=== PATIENT | male | born 1980 | race Hispanic/Latino ===

== ENCOUNTER 2018-03-13 16:54 | Emergency (ER) | payer SELFPAY ==
[2018-03-13] MEDS ORDERED: NA CHLORIDE 0.9% 1,000 ML ONE (17:43)
[2018-03-13 17:56] LABS: Hematocrit 22.4 % (39.6-49.0); MCH 29.7 pg (27.0-35.0); MPV 9.4 fL (7.6-11.3); RBC Red Blood Cell Count 2.38 M/uL (4.33-5.43)
[2018-03-13 18:03] LABS: Protime INR 1.35
[2018-03-13 18:10] LABS: ALT/SGPT 21 U/L (12-78); AST/SGOT 20 U/L (15-37); Albumin 3.6 g/dL (3.4-5.0); Alkaline Phosphatase 72 U/L (45-117); Amylase Level 31 U/L (25-115); BUN Blood Urea Nitrogen 9 mg/dL (7-18); Bicarbonate 26 mmol/L (21-32); Bilirubin Direct < 0.1 mg/dL (0-0.2); Bilirubin Total 0.4 mg/dL (0.2-1.0); Glucose Level 117 mg/dL (74-106); Lipase 59 U/L (73-393); Magnesium 2.4 mg/dL (1.8-2.4); Potassium 3.8 mmol/L (3.5-5.1); Sodium Level 143 mmol/L (136-145)
[2018-03-13 18:32] LABS: Platelet Estimate ADEQ
[2018-03-13 18:33] LABS: Blood Morphology Comment NOT SEEN (NOT SEEN)
[2018-03-13 18:48] LABS: Urine Bacteria <20 /HPF (NONE SEEN); Urine RBC <5 /HPF (NONE SEEN)
[2018-03-13 18:49] LABS: Urine Amorphous Sediment 1+ /HPF (NONE SEEN); Urine Culture Reflex Order NOT NEEDED; Urine Mucus 1+ /HPF (NONE SEEN)
[2018-03-13] MEDS ORDERED: PIPER/TAZO/NS 3.375gm 3.375 GM/100 ML BAG ONE (18:57)
[2018-03-13] MEDS ORDERED: METRONIDAZOLE 500mg IVPB 500 MG/100 ML BAG IV ONE (18:57)
[2018-03-13 19:04] LABS: Urine Blood TRACE (NEG); Urine Glucose NEGATIVE (NEG); Urine Protein 1+ (NEG)
--- NOTE | 2018-03-13 19:09 | EKG ---
Test Date: 2018-03-13 Test Time: 17:45:15 [employer] Dispatcher: DAGO MEASUREMENT RESULTS: Intervals: Rate: 104 DE: 130 QRSD: 94 QT: 342 QTc: 449 [place]: P: 27 DE: 130 QRS: 18 T: 35 INTERPRETIVE STATEMENTS: Sinus tachycardia Otherwise normal ECG No previous ECG available for comparison Electronically Signed On 03-13-18 19:08:37 CDT by Tima Garnett
[2018-03-13] MEDS ORDERED: FENTANYL CITR 100 MCG/2 ML ONE (19:17)
--- NOTE | 2018-03-13 19:51 | RAD REPORT ---
EXAM DESCRIPTION: CT - Abdomen Pelvis W Contrast - 03/13/2018 7:25 pm CLINICAL HISTORY: Abdominal pain, bloody diarrhea COMPARISON: None. TECHNIQUE: Biphasic, helical CT imaging of the abdomen and pelvis was performed following 100 ml non -ionic IV contrast. Oral contrast was given. All CT scans are performed using dose optimization technique as appropriate and may include automated exposure control or mA/KV adjustment according to patient size. FINDINGS: No suspicious findings in the lung bases. Liver is normal in size. In the anterior right lobe segment IV near the falciform ligament there is a 3.3 centimeter rounded area of diminished attenuation. Punctate hyperdensity is present centrally wi thin this mass. This could be mineralization or enhancement. Imaging characteristics are not signific antly different between arterial and venous phase imaging. A few small cysts are present in the right lobe of the liver a 8 mm or less in size. No gallbladder or biliary tree abnormality. No pancreatic abnormality. Patient has pronounced splenomegaly. No infarction or focal splenic abnormality seen. Spleen measures 28 cm x 23 cm x 10 cm. No adjacent lymphadenopathy. There is mass effect on the kidney and left-side d abdominal structures. Symmetric renal function is seen with no hydronephrosis or suspicious renal mass. No bladder abnormal ity. No gastric wall thickening or gastric mass. No small bowel abnormality. Appendix is surgically absent by history. Cecum through descending colon show no significant findings. In the proximal sigmoid col on there is circumferential wall thickening and luminal narrowing. A 3 centimeter x 1.5 centimeter ir regular soft tissue mass is present in the mesenteries adjacent to the involved colon. There is a pun ctate calcification present. No abscess or extraluminal free air. No abnormal free fluid collection a nd no pneumatosis. No mass or bulky lymphadenopathy. Small fat filled right inguinal hernia noted. No adrenal abnormalit y. No suspicious bony findings. IMPRESSION: Approximately 4 centimeter long segment of sigmoid colon showing wall thickening and lum inal narrowing. Approximately 3 x 1.5 cm irregular soft tissue mass in the mesenteric fat adjacent to the involved si gmoid colon. Colon findings may reflect an infectious/inflammatory colitis. Although the patient is relatively you ng, colon malignancy cannot be excluded. The mesenteric soft tissue mass near the sigmoid could represent inflammatory change as well. The pos sibility of a malignant extension or even carcinoid tumor should be considered. Marked splenomegaly with the spleen measuring 28 x 23 x 10 cm. No adjacent lymphadenopathy, splenic i nfarction or ascites. Approximately 3 centimeter nonspecific lesion segment IV of the liver. Etiology is uncertain. The mas s does not have characteristics classic for hemangioma, adenoma or focal nodular hyperplasia. A metas tatic lesion cannot be excluded if the sigmoid and mesenteric masses proved to be neoplastic.
[2018-03-13] MEDS ORDERED: NA CHLORIDE 0.9% 500 ML ONE (20:07)
--- NOTE | 2018-03-13 20:07 | ER ---
Nurse's Notes [facility] Name: Claude Crook Age: 38 yrs Sex: Male : 1980 Arrival Date: 03/13/2018 Time: 16:58 Bed 17 Private MD: None, None Diagnosis: Anemia;Gastrointestinal hemorrhage, unspecified Presentation: 03/13 17:05 Presenting complaint: Patient states: "i have had bloody stools since the day before tw2 yesterday with groin pain and i have a bruise on my left lower abdomen after rides [place] amusement park". Transition of care: patient was not received from another setting of care. Onset of symptoms was March 13, 2018. Risk Assessment: Do you want to hurt yourself or someone else? Patient reports no desire to harm self or others. Initial Sepsis Screen: Does the patient meet any 2 criteria? No. Patient's initial sepsis screen is negative. Does the patient have a suspected source of infection? No. Patient's initial sepsis screen is negative. Care prior to arrival: None. 17:05 Method Of Arrival: Ambulatory tw2 17:05 Acuity: LINDA 3 tw2 Historical: - Allergies: 17:08 No Known Allergies; tw2 - Home Meds: 17:08 None [Active]; tw2 - PMHx: 17:08 None; tw2 - PSHx: 17:08 Appendectomy; tw2 - Immunization history:: Adult Immunizations up to date. - Social history:: Smoking status: Patient/guardian denies using tobacco. - Ebola Screening: : Patient denies travel to an Ebola-affected area in the 21 days before illness onset. Screenin:16 Abuse screen: Denies threats or abuse. Nutritional screening: No deficits noted. tw2 Tuberculosis screening: No symptoms or risk factors identified. Fall Risk None identified. Assessment: 17:00 General: Appears uncomfortable, Behavior is calm, cooperative, appropriate for age. tw2 Pain: Complains of pain in right lower quadrant and left lower quadrant. Neuro: Level of Consciousness is awake, alert, obeys commands, Oriented to person, place, time, situation. Cardiovascular: Denies chest pain, shortness of breath, Heart tones S1 S2 Patient's skin is warm and dry. Respiratory: Airway is patent Respiratory effort is even, unlabored, Respiratory pattern is regular, symmetrical, Breath sounds are clear bilaterally. GI: Abdomen is round non-distended, Bowel sounds present X 4 quads. Reports lower abdominal pain, diarrhea, bloody stool. : No signs and/or symptoms were reported regarding the genitourinary system. EENT: No signs and/or symptoms were reported regarding the EENT system. Derm: Skin is intact, is healthy with good turgor, Skin temperature is warm. Musculoskeletal: Circulation, motion, and sensation intact. Range of motion: intact in all extremities. 17:28 Reassessment: provider at bedside at this time. tw2 17:53 Reassessment: Patient appears in no apparent distress at this time. No changes from tw2 previously documented assessment. Patient and/or family updated on plan of care and expected duration. Pain level reassessed. Patient is alert, oriented x 3, equal unlabored respirations, skin warm/dry/pink. 18:47 Reassessment: No changes from previously documented assessment. Patient and/or family tw2 updated on plan of care and expected duration. Pain level reassessed. Patient is alert, oriented x 3, equal unlabored respirations, skin warm/dry/pink. Reassessment: per Stephy Ramirez, wants stool sample PRIOR to abx. 18:50 Reassessment: per SELIN De Los Santos at this time, go ahead and give ABX that are ordered. tw2 19:09 General: Appears uncomfortable, Behavior is calm, cooperative, appropriate for age. ea Pain: Complains of pain in left upper quadrant and left lower quadrant and right lower quadrant Quality of pain is described as crampy. Neuro: Level of Consciousness is awake, alert, obeys commands, Oriented to person, place, time, situation. Cardiovascular: Heart tones S1 S2 present Patient's skin is warm and dry. Respiratory: Airway is patent Respiratory effort is even, unlabored, Respiratory pattern is regular, symmetrical. GI: Abdomen is non-distended, Bowel sounds present X 4 quads. Reports lower abdominal pain, diarrhea, bloody stool. : No signs and/or symptoms were reported regarding the genitourinary system. EENT: No signs and/or symptoms were reported regarding the EENT system. Derm: Skin is dry, Skin is pale, Skin temperature is warm. Musculoskeletal: Circulation, motion, and sensation intact. 19:18 Reassessment: pt taken to CT. ea 19:35 Reassessment: Patient and/or family updated on plan of care and expected duration. Pain ea level reassessed. Patient is alert, oriented x 3, equal unlabored respirations, skin warm/dry/pink. Patient returned from CT. 20:30 Reassessment: Patient and/or family updated on plan of care and expected duration. Pain ea level reassessed. Patient is alert, oriented x 3, equal unlabored respirations, skin warm/dry/pink. 21:10 Reassessment: Report called to Jhoana OSEGUERA at [facility]. ea 21:27 Reassessment: Patient and/or family updated on plan of care and expected duration. Pain ea level reassessed. Patient is alert, oriented x 3, equal unlabored respirations, skin warm/dry/pink. [facility] at facility for transfer. Vital Signs: 17:06 BP 115 / 69; Pulse 106; Resp 18; Temp 99.4(O); Pulse Ox 95% on R/A; Weight 136.08 kg tw2 (R); Height 6 ft. 2 in. (187.96 cm); Pain 7/10; 17:36 BP 113 / 67 Supine; Pulse 98; tw2 17:36 BP 114 / 66 Sitting; Pulse 97; tw2 17:36 BP 104 / 63 Standing; Pulse 107; tw2 18:48 BP 115 / 73; Pulse 98; Resp 17; Pulse Ox 96% on R/A; tw2 19:00 BP 112 / 71; Pulse 90; Resp 18; Pulse Ox 97% ; ea 20:50 BP 118 / 70; Pulse 90; Resp 18; Temp 98.8; Pulse Ox 97% ; ea 21:15 BP 117 / 68; Pulse 88; Resp 18; Temp 98.9(O); Pulse Ox 97% on R/A; ea 17:06 Body Mass Index 38.52 (136.08 kg, 187.96 cm) tw2 17:36 c/o dizziness,provider notified. tw2 17:36 dizzy tw2 ED Course: 16:58 Patient arrived in ED. mr 16:59 None, None is Private Physician. mr 17:04 Robert Ramirez PA is PHCP. cp 17:04 Mike Jenkins MD is Attending Physician. cp 17:05 Yolande Swanson RN is Primary Nurse. tw2 17:05 Placed in gown. Bed in low position. Adult w/ patient. Pulse ox on. NIBP on. tw2 17:06 Triage completed. tw2 17:06 Arm band placed on. tw2 17:45 Inserted saline lock: 20 gauge in right antecubital area, using aseptic technique. tw2 Blood collected. 17:50 EKG done, by manufacturing engineering technologist. reviewed by Robert SMALLWOOD. sm3 18:41 Bb Add On Sent. iw 19:00 Awaiting: T\\T\\S results, and PRBC's transfusion, see order in pts chart, consent has been tw2 done, OUMAR Farah notified. 19:00 Report given to OUMAR Farah. tw2 19:25 CT Abd/Pelvis - W/Contrast In Process Unspecified. EDMS 21:29 No provider procedures requiring assistance completed. Patient transferred, IV remains ea in place. Administered Medications: 17:49 Drug: NS 0.9% 1000 ml Route: IV; Rate: 1 bolus; Site: right antecubital; tw2 18:41 Follow up: Response: No adverse reaction; IV Status: Completed infusion; IV Intake: iw 1000ml 18:19 CANCELLED (Physician Discretion): NS 0.9% (30 ml/kg) 30 ml/kg IV at bolus once; Sepsis cp Protocol 18:58 Drug: Zosyn 3.375 grams Route: IVPB; Infused Over: 60 mins; Site: right antecubital; tw2 19:00 Drug: metroNIDAZOLE 500 mg Volume: 100 ml; Route: IVPB; Infused Over: 30 mins; Site: tw2 right antecubital; 19:18 Drug: fentaNYL (PF) 50 mcg Route: IVP; Site: right forearm; ea 20:30 Follow up: Response: No adverse reaction; Pain is decreased ea Intake: 18:41 IV: 1000ml; Total: 1000ml. iw Outcome: 20:06 ER care complete, transfer ordered by . cp 21:30 Transferred by ground EMS to [facility], Transfer form completed. ea 21:30 Condition: stable 21:30 Instructed on the need for transfer. 21:36 Patient left the ED. ea Signatures: Dispatcher [employer] EDND Margarita Gamez Irene, RN RN iw Robert Ramirez PA PA cp Wise, Tara RN RN tw2 Sofi Issa RN RN ea Massey, Clari 3
--- NOTE | 2018-03-13 21:37 | EDPHYS ---
Physician Documentation [facility] Name: Claude Crook Age: 38 yrs Sex: Male : 1980 Arrival Date: 03/13/2018 Time: 16:58 Bed 17 Private MD: None, None ED Physician Mike Jenkins HPI: 03/13 17:35 This 38 yrs old Male presents to ER via Ambulatory with complaints of Bloody cp Stools. 17:35 The patient presents to the emergency department with rectal bleeding, "filled toilet", cp dark red blood with bowel movement in toilet bowl, with multiple such episodes. 17:35 Onset: The symptoms/episode began/occurred 2 day(s) ago. Abdominal pain: described as cp constant. Associated signs and symptoms: Pertinent positives: anorexia, diarrhea, dizziness at rest, dizziness when standing, Pertinent negatives: chest pain, constipation, fever, shortness of breath, syncope, vomiting. Severity of symptoms: in the emergency department the symptoms are unchanged despite home interventions. The patient has not experienced similar symptoms in the past. 17:35 Patient reports symptoms started 2 days ago after eating spaghetti with room mate who cp also had diarrhea w/o blood. Historical: - Allergies: 17:08 No Known Allergies; tw2 - Home Meds: 17:08 None [Active]; tw2 - PMHx: 17:08 None; tw2 - PSHx: 17:08 Appendectomy; tw2 - Immunization history:: Adult Immunizations up to date. - Social history:: Smoking status: Patient/guardian denies using tobacco. - Ebola Screening: : Patient denies travel to an Ebola-affected area in the 21 days before illness onset. ROS: 17:50 Constitutional: Positive for chills, Negative for body aches, fever, poor PO intake. cp 17:50 Eyes: Negative for injury, pain, redness, and discharge. cp 17:50 ENT: Negative for drainage from ear(s), ear pain, sore throat, difficulty swallowing, difficulty handling secretions. 17:50 Neck: Negative for pain with movement, pain at rest, stiffness. 17:50 Cardiovascular: Negative for chest pain, edema, palpitations. 17:50 Abdomen/GI: Positive for abdominal pain, nausea, diarrhea, anorexia, rectal bleeding, of the suprapubic area, left upper quadrant and left lower quadrant, Negative for vomiting, constipation. 17:50 Back: Negative for pain at rest, pain with movement. 17:50 : Negative for urinary symptoms. 17:50 Skin: Negative for cellulitis, rash. 17:50 Neuro: Positive for dizziness, Negative for altered mental status, syncope, near syncope. 17:50 All other systems are negative. Exam: 17:52 ECG was reviewed by the Attending Physician. cp 18:00 Constitutional: The patient appears in no acute distress, alert, awake, cp non-diaphoretic, non-toxic, well developed, well nourished, obese, uncomfortable. 18:00 Head/Face: Normocephalic, atraumatic. Eyes: Pupils equal round and reactive to light, cp extra-ocular motions intact. Lids and lashes normal. Conjunctiva and sclera are non-icteric and not injected. Cornea within normal limits. Periorbital areas with no swelling, redness, or edema. ENT: Nares patent. No nasal discharge, no septal abnormalities noted. Tympanic membranes are normal and external auditory canals are clear. Oropharynx with no redness, swelling, or masses, exudates, or evidence of obstruction, uvula midline. Mucous membranes moist. Neck: Trachea midline, no thyromegaly or masses palpated, and no cervical lymphadenopathy. Supple, full range of motion without nuchal rigidity, or vertebral point tenderness. No Meningismus. Chest/axilla: Normal chest wall appearance and motion. Nontender with no deformity. No lesions are appreciated. 18:00 Cardiovascular: Rate: normal, Rhythm: regular, Heart sounds: murmur, not appreciated, rub, not appreciated, gallop, not appreciated, Edema: is not appreciated. 18:00 Respiratory: the patient does not display signs of respiratory distress, Respirations: normal, no use of accessory muscles, no retractions, no splinting, no tachypnea, labored breathing, is not present, Breath sounds: are clear throughout, no decreased breath sounds, no stridor, no wheezing. 18:00 Abdomen/GI: Inspection: bruising, anterior aspect of left lateral abdomen, obese Bowel sounds: active, all quadrants, Palpation: soft, in all quadrants, moderate abdominal tenderness, in the suprapubic area, left upper quadrant and left lower quadrant, rebound tenderness, is not appreciated, voluntary guarding, is elicited in the suprapubic area, left upper quadrant and left lower quadrant, Rectal exam: rectal tone normal, Stool: guaiac positive, maroon, tenderness, that is moderate. 18:00 Skin: cellulitis, is not appreciated, no rash present. 18:00 Neuro: Orientation: to person, place \\T\\ time. Mentation: lucid, able to follow commands, Cerebellar function: is grossly normal, Motor: moves all fours, strength is normal, Sensation: no obvious gross deficits. Vital Signs: 17:06 BP 115 / 69; Pulse 106; Resp 18; Temp 99.4(O); Pulse Ox 95% on R/A; Weight 136.08 kg tw2 (R); Height 6 ft. 2 in. (187.96 cm); Pain 7/10; 17:36 BP 113 / 67 Supine; Pulse 98; tw2 17:36 BP 114 / 66 Sitting; Pulse 97; tw2 17:36 BP 104 / 63 Standing; Pulse 107; tw2 18:48 BP 115 / 73; Pulse 98; Resp 17; Pulse Ox 96% on R/A; tw2 19:00 BP 112 / 71; Pulse 90; Resp 18; Pulse Ox 97% ; ea 20:50 BP 118 / 70; Pulse 90; Resp 18; Temp 98.8; Pulse Ox 97% ; ea 21:15 BP 117 / 68; Pulse 88; Resp 18; Temp 98.9(O); Pulse Ox 97% on R/A; ea 17:06 Body Mass Index 38.52 (136.08 kg, 187.96 cm) tw2 17:36 c/o dizziness,provider notified. tw2 17:36 dizzy tw2 MDM: 03/12 18:00 Differential diagnosis: gastritis, diverticulitis, hemorrhoids, hemorrhagic shock, cp sepsis, infectious diarrhea. 03/13 17:04 Patient medically screened. cp 19:58 Data reviewed: vital signs, nurses notes, lab test result(s), EKG, radiologic studies, cp CT scan. 20:13 Physician consultation: DR Gudino, \\T\\[facility], will consult and requests patient be cp transferred to care of hospitalist. 20:30 Physician consultation: DR Kowalski, hospitalist \\T\\[facility], will accept patient as transfer. cp 08/03 17:33 Order name: Amylase, Serum; Complete Time: 18:12 cp 08/03 17:33 Order name: Basic Metabolic Panel; Complete Time: 18:12 cp / 19:03 Interpretation: Normal except: CL 110; GLUC 117; GFR 62; CA 8.2. cp / 17:33 Order name: CBC with Diff; Complete Time: 19:02 cp /03 19:02 Interpretation: Normal except: WBC 341.5; RBC 2.38; HGB 7.1; HCT 22.4; MCHC 31.6; PLT cp 442; RDW 19.0. / 17:33 Order name: Creatinine for Radiology; Complete Time: 18:10 cp / 17:33 Order name: Hepatic Function; Complete Time: 18:12 cp / 17:33 Order name: Lipase; Complete Time: 18:12 cp / 17:33 Order name: Urine Microscopic Only; Complete Time: 19:02 cp / 17:33 Order name: PT-INR; Complete Time: 18:10 cp 03/13 17:33 Order name: Ptt, Activated; Complete Time: 18:10 cp 03/13 17:33 Order name: Magnesium; Complete Time: 18:12 cp / 18:10 Order name: Manual Differential; Complete Time: 19:02 EDMS / 19:02 Interpretation: Normal except: SEGS 35; BANDS [F] 7; LYM 0; BASOS 7; META 12. cp 08/03 17:31 Order name: Orthostatics; Complete Time: 17:37 cp / 17:33 Order name: EKG; Complete Time: 17:33 cp 03/13 17:33 Order name: EKG - Nurse/Tech; Complete Time: 18:15 cp / 17:33 Order name: CT Abd/Pelvis - W/Contrast; Complete Time: 19:54 cp 03/13 18:10 Order name: Type And Screen cp / 18:10 Order name: Procalcitonin; Complete Time: 19:09 cp /03 19:09 Interpretation: Abnormal: Procalcitonin 0.89. cp /03 18:10 Order name: Lactate; Complete Time: 19:46 cp / 19:46 Interpretation: Within normal limits: LAC 0.6. cp / 18:25 Order name: Bb Add On ag 08/03 18:30 Order name: Packed RBC Leukored -1 EDCO 03/13 18:49 Order name: ABO/RH no charge; Complete Time: 19:02 EDCO 03/13 18:59 Order name: Urine Dipstick--Ancillary (enter results); Complete Time: 19:09 ag 03/13 17:33 Order name: IV Saline Lock; Complete Time: 17:49 cp 03/13 17:33 Order name: Labs collected and sent; Complete Time: 17:50 cp 03/13 17:33 Order name: Urine Dipstick-Ancillary (obtain specimen); Complete Time: 07:52 cp EC:52 Rate is 104 beats/min. Rhythm is regular. SC interval is normal. QRS interval is cp normal. QT interval is normal. No ST changes noted. Interpreted by me. Reviewed by me. Administered Medications: 17:49 Drug: NS 0.9% 1000 ml Route: IV; Rate: 1 bolus; Site: right antecubital; tw2 18:41 Follow up: Response: No adverse reaction; IV Status: Completed infusion; IV Intake: iw 1000ml 18:19 CANCELLED (Physician Discretion): NS 0.9% (30 ml/kg) 30 ml/kg IV at bolus once; Sepsis cp Protocol 18:58 Drug: Zosyn 3.375 grams Route: IVPB; Infused Over: 60 mins; Site: right antecubital; tw2 19:00 Drug: metroNIDAZOLE 500 mg Volume: 100 ml; Route: IVPB; Infused Over: 30 mins; Site: tw2 right antecubital; 19:18 Drug: fentaNYL (PF) 50 mcg Route: IVP; Site: right forearm; ea 20:30 Follow up: Response: No adverse reaction; Pain is decreased ea Disposition: 03/13/18 20:06 Transfer ordered to [facility]. Diagnosis are Anemia, Gastrointestinal hemorrhage, unspecified. - Reason for transfer: Higher level of care. - Accepting physician is DR Kowalski. - Condition is Stable. - Problem is new. - Symptoms have improved. Addendum: 03/16/2018 07:21 Co-signature as Attending Physician, Mike Jenkins MD I agree with the assessment and k dr plan of care. Signatures: Dispatcher [employer] [facility] Mike Jenkins MD MD kdr Page, Corey PA PA cp Yolande Swanson, RN RN tw2 Sofi Issa, Carolyn Rg RN, ea, RN iw Corrections: (The following items were deleted from the chart) 03/13 17:35 17:33 Occult Blood+PA.LAB.BRZ ordered. EDMS EDMS 18:19 18:12 NS 0.9% (30 ml/kg) 30 ml/kg IV at bolus once; Sepsis Protocol ordered. cp cp 19:03 19:02 Normal except: CL 110; GLUC 117; GFR 62. cp cp 19:46 19:46 LAC 0.6. cp cp 20:26 20:06 03/13/2018 20:06 Transfer ordered to [facility]. Diagnosis is cp Anemia; Gastrointestinal hemorrhage, unspecified. Reason for transfer: Higher level of care. Accepting physician is . Condition is Stable. Problem is new. Symptoms have improved. cp 21:36 20:26 03/13/2018 20:06 Transfer ordered to [facility]. Diagnosis is ea Anemia; Gastrointestinal hemorrhage, unspecified. Reason for transfer: Higher level of care. Accepting physician is DR Kowalski. Condition is Stable. Problem is new. Symptoms have improved. cp
== END 2018-03-13 21:36 | disposition short-term general hospital (02) ==
LOC: ER 16:54
PROC: 30233N1 Transfusion of Nonautologous Red Blood Cells into Peripheral Vein, Percutaneous Approach (ICD-10-PCS; principal; 2018-03-13)
DX: D64.9 Anemia, unspecified (principal)
CPT/HCPCS: 36415; 74177; 80048; 80076; 81003; 81015; 82150; 83605; 83690; 83735; 84145; 85025; 85610; 85730; 86850; 86900; 86901; 93005; 99285; J2543; J3010; J7030; P9016; Q9967